=== PATIENT | female | born 1965 | race Caucasian/White ===

== ENCOUNTER 2020-08-11 16:01 | Emergency (ER) | payer SELFPAY ==
[~2020-08-11] VITALS: Ht 157.5 cm; Wt 99.8 kg
[~2020-08-11 16:01] MED LIST: CIPRO 500MG TA500 MG PO; LORTAB 5/500 501 TAB PO
[2020-08-11 17:25] LABS: EOS % 0.2 % (1.0-5.0); HEMATOCRIT 48.8 % (37.0-47.0); LYMPH# 2.2 (1.50-4.00); MEAN CELL VOLUME 85 fl (78-100); MEAN CORPUSCULAR HEMOGLOBIN 28 pg (27-31); MEAN CORPUSCULAR HGB CONC 33 g/dL (33-37); MEAN PLATELET VOLUME 10.3 fl (7.4-10.4); MONO # 1.3 (0.20-0.80); PLATELET COUNT 441 K/mm3 (130-400); RED BLOOD COUNT 5.72 M/mm3 (4.10-5.30); RED CELL DISTRIBUTION WIDTH 13.4 % (11.5-14.5); WHITE BLOOD COUNT 13.3 K/mm3 (4.8-10.8)
[2020-08-11 17:28] LABS: NEU # 9.7 (1.40-6.50)
[2020-08-11 17:36] LABS: ALBUMIN 4.4 g/dL (3.5-5.0); SODIUM 143 mmol/L (136-145)
[2020-08-11 17:37] LABS: CALCIUM 10.1 mg/dL (8.3-10.5)
[2020-08-11 17:38] LABS: GLUCOSE 157 mg/dL (65-105)
[2020-08-11 17:39] LABS: TOTAL PROTEIN 7.8 g/dL (6.4-8.3)
[2020-08-11 17:40] LABS: CARBON DIOXIDE 25 mmol/L (22-29); POTASSIUM 2.8 mmol/L (3.5-5.1); TOTAL BILIRUBIN 0.9 mg/dL (0.2-1.2)
[2020-08-11 17:44] LABS: AST-SGOT 17 U/L (5-34)
[2020-08-11 17:45] LABS: ALT/SGPT 22 U/L (0-55)
[2020-08-11 17:52] LABS: TROPONIN-I < 0.03 ng/mL (<0.030)
[2020-08-11 19:15] VITALS: BP 171/113
== END 2020-08-11 19:26 | disposition short-term general hospital (02) ==
LOC: ED 16:01
PROVIDERS: Nurse Practitioner Family
DX: I63.9 Cerebral infarction, unspecified (principal); I61.5 Nontraumatic intracerebral hemorrhage, intraventricular; E87.6 Hypokalemia; Z20.828 Contact with and (suspected) exposure to other viral communicable diseases; Z90.89 Acquired absence of other organs; Z90.49 Acquired absence of other specified parts of digestive tract; Z86.73 Personal history of transient ischemic attack (TIA), and cerebral infarction without residual deficits; Z88.0 Allergy status to penicillin; Z88.2 Allergy status to sulfonamides; Z88.5 Allergy status to narcotic agent; Z88.8 Allergy status to other drugs, medicaments and biological substances
CPT/HCPCS: J3480; J7050

== ENCOUNTER → 2020-09-10 | Outpatient (CLI) | payer SELFPAY ==
[2020-08-11 19:15] VITALS: BP 171/113
== END ==
LOC: RAD 10:29
DX: I63.9 Cerebral infarction, unspecified (principal); G93.89 Other specified disorders of brain

== ENCOUNTER 2020-09-24 13:38 | Emergency (ER) | payer OTHER ==
[2020-09-24] MEDS ORDERED: ATORVASTATIN CA80 MG PO (14:09)
[2020-09-24] MEDS ORDERED: NORVASC 10MG10 MG PO (14:09)
[2020-09-24] MEDS ORDERED: ASPIRIN 81M81 MG/TA2 PO (14:10)
[2020-09-24] MEDS ORDERED: CLONIDINE1 EAC1 TD (14:10)
[2020-09-24] MEDS ORDERED: DOXAZOSIN MESYLA1 M1 PO (14:10)
[2020-09-24 14:14] LABS: EOS # 0.1 (0.04-0.40); EOS % 0.8 % (1.0-5.0); HEMATOCRIT 41.6 % (37.0-47.0); HEMOGLOBIN 13.6 g/dL (12.5-16.0); LYMPH# 2.2 (1.50-4.00); MEAN CELL VOLUME 87 fl (78-100); MEAN CORPUSCULAR HEMOGLOBIN 29 pg (27-31); MEAN CORPUSCULAR HGB CONC 33 g/dL (33-37); MEAN PLATELET VOLUME 10.2 fl (7.4-10.4); MONO # 0.7 (0.20-0.80); PLATELET COUNT 320 K/mm3 (130-400); RED BLOOD COUNT 4.76 M/mm3 (4.10-5.30); RED CELL DISTRIBUTION WIDTH 13.5 % (11.5-14.5)
[2020-09-24 14:23] LABS: POTASSIUM 3.2 mmol/L (3.5-5.1); SODIUM 144 mmol/L (136-145)
[2020-09-24 14:24] LABS: CALCIUM 9.7 mg/dL (8.3-10.5)
[2020-09-24 14:25] LABS: GLUCOSE 120 mg/dL (65-105)
[2020-09-24 14:27] LABS: CARBON DIOXIDE 25 mmol/L (22-29); TOTAL BILIRUBIN 0.8 mg/dL (0.2-1.2)
[2020-09-24 14:31] LABS: AST-SGOT 17 U/L (5-34)
[2020-09-24 14:32] LABS: ALT/SGPT 21 U/L (0-55)
[2020-09-24 14:38] LABS: TROPONIN-I < 0.03 ng/mL (<0.030)
[2020-09-24] MEDS ORDERED: CATAPRES0.1 M1 PO ×3 (16:23→17:08)
[2020-09-24] MEDS ORDERED: POTASSIUM CHLO20 ME3 PO ×3 (16:25→17:08)
[2020-09-24 16:49] VITALS: BP 153/85
== END 2020-09-24 16:33 | disposition home or self-care (01) ==
LOC: ED 13:38
PROVIDERS: Nurse Practitioner Family
DX: I10 Essential (primary) hypertension (principal); E87.6 Hypokalemia; Z86.73 Personal history of transient ischemic attack (TIA), and cerebral infarction without residual deficits; E78.5 Hyperlipidemia, unspecified; Z90.49 Acquired absence of other specified parts of digestive tract; Z88.0 Allergy status to penicillin; Z88.2 Allergy status to sulfonamides; Z88.5 Allergy status to narcotic agent; Z88.8 Allergy status to other drugs, medicaments and biological substances; Z79.82 Long term (current) use of aspirin; Z79.899 Other long term (current) drug therapy

== ENCOUNTER → 2020-11-16 | Outpatient (CLI) | payer MEDICAID ==
[~2020-11-16] MED LIST changes: +ASPIRIN 81M81 MG/TA2 PO; +ATORVASTATIN CA80 MG PO; +CATAPRES0.1 M1 PO; +CLONIDINE1 EAC1 TD; +DOXAZOSIN MESYLA1 M1 PO; +NORVASC 10MG10 MG PO; +POTASSIUM CHLO20 ME3 PO
[2020-11-16 11:45] LABS: EOS # 0.1 (0.04-0.40); EOS % 0.9 % (1.0-5.0); HEMATOCRIT 43.3 % (37.0-47.0); HEMOGLOBIN 13.6 g/dL (12.5-16.0); LYMPH# 1.5 (1.50-4.00); MEAN CELL VOLUME 91 fl (78-100); MEAN CORPUSCULAR HEMOGLOBIN 29 pg (27-31); MEAN CORPUSCULAR HGB CONC 31 g/dL (33-37); MEAN PLATELET VOLUME 9.7 fl (7.4-10.4); MONO # 0.5 (0.20-0.80); NEU # 4.7 (1.40-6.50); PLATELET COUNT 377 K/mm3 (130-400); RED BLOOD COUNT 4.74 M/mm3 (4.10-5.30); WHITE BLOOD COUNT 6.8 K/mm3 (4.8-10.8)
[2020-11-16 12:03] LABS: ALBUMIN 4.3 g/dL (3.5-5.0); POTASSIUM 4.5 mmol/L (3.5-5.1)
[2020-11-16 12:05] LABS: CALCIUM 9.9 mg/dL (8.3-10.5)
[2020-11-16 12:06] LABS: TOTAL PROTEIN 7.6 g/dL (6.4-8.3)
[2020-11-16 12:08] LABS: TOTAL BILIRUBIN 0.7 mg/dL (0.2-1.2)
== END ==
LOC: LAB 11:24
PROVIDERS: Family Medicine
DX: Z00.00 Encounter for general adult medical examination without abnormal findings (principal); E55.9 Vitamin D deficiency, unspecified

== ENCOUNTER 2020-11-30 09:15 | Outpatient (RCR) | payer MEDICAID, OTHER | END 2020-12-03 | disposition home or self-care (01) | LOC: SPEECH | DX: I61.8 Other nontraumatic intracerebral hemorrhage (principal) ==

== ENCOUNTER 2020-12-07 09:30 | Outpatient (RCR) | payer MEDICAID, OTHER | END 2021-03-07 | disposition home or self-care (01) | LOC: SPEECH | DX: I63.9 Cerebral infarction, unspecified (principal) ==

== ENCOUNTER 2020-12-14 10:00 | Outpatient (RCR) | payer MEDICAID | END 2021-02-04 17:00 | disposition home or self-care (01) | LOC: PT 10:00 | DX: M75.01 Adhesive capsulitis of right shoulder (principal) ==

== ENCOUNTER → 2022-01-04 | Outpatient (CLI) | payer MEDICAID ==
[2022-01-04 09:26] LABS: BASO # 0.05 K/mm3 (0.02-0.10); EOS # 0.09 K/mm3 (0.04-0.40); EOS % 1.2 % (1.0-5.0); HEMATOCRIT 41.9 % (37.0-47.0); HEMOGLOBIN 13.7 g/dL (12.5-16.0); LYMPH# 1.66 K/mm3 (1.50-4.00); MEAN CELL VOLUME 90 fl (78-100); MEAN CORPUSCULAR HEMOGLOBIN 29 pg (27-31); MEAN CORPUSCULAR HGB CONC 33 g/dL (33-37); MEAN PLATELET VOLUME 10.8 fl (7.4-10.4); MONO # 0.71 K/mm3 (0.20-0.80); NEU # 4.98 K/mm3 (1.40-6.50); PLATELET COUNT 278 K/mm3 (130-400); RED BLOOD COUNT 4.67 M/mm3 (4.10-5.30); WHITE BLOOD COUNT 7.5 K/mm3 (4.8-10.8)
[2022-01-04 09:28] LABS: ALBUMIN 3.8 g/dL (3.5-5.0); POTASSIUM 3.7 mmol/L (3.5-5.1)
[2022-01-04 09:29] LABS: CALCIUM 9.7 mg/dL (8.3-10.5)
[2022-01-04 09:30] LABS: TOTAL PROTEIN 7.2 g/dL (6.4-8.3)
[2022-01-04 09:32] LABS: TOTAL BILIRUBIN 0.9 mg/dL (0.2-1.2)
== END ==
LOC: LAB 08:46
PROVIDERS: Family Medicine
DX: Z00.00 Encounter for general adult medical examination without abnormal findings (principal); Z12.11 Encounter for screening for malignant neoplasm of colon; Z12.31 Encounter for screening mammogram for malignant neoplasm of breast; E78.5 Hyperlipidemia, unspecified; F19.11 Other psychoactive substance abuse, in remission; N39.41 Urge incontinence; E55.9 Vitamin D deficiency, unspecified; E66.9 Obesity, unspecified

== ENCOUNTER → 2022-01-05 | Outpatient (CLI) | payer MEDICAID | LOC: LAB 14:04 | DX: Z12.11 Encounter for screening for malignant neoplasm of colon (principal) ==

== ENCOUNTER → 2022-05-04 | Outpatient (CLI) | payer MEDICAID ==
[2022-05-04 12:38] LABS: BASO # 0.05 K/mm3 (0.02-0.10); EOS # 0.05 K/mm3 (0.04-0.40); EOS % 0.5 % (1.0-5.0); HEMATOCRIT 45.6 % (37.0-47.0); HEMOGLOBIN 14.6 g/dL (12.5-16.0); LYMPH# 2.02 K/mm3 (1.50-4.00); MEAN CELL VOLUME 93 fl (78-100); MEAN CORPUSCULAR HEMOGLOBIN 30 pg (27-31); MEAN CORPUSCULAR HGB CONC 32 g/dL (33-37); MEAN PLATELET VOLUME 10.7 fl (7.4-10.4); MONO # 0.76 K/mm3 (0.20-0.80); NEU # 6.95 K/mm3 (1.40-6.50); PLATELET COUNT 270 K/mm3 (130-400); RED BLOOD COUNT 4.92 M/mm3 (4.10-5.30); RED CELL DISTRIBUTION WIDTH 12.7 % (11.5-14.5); WHITE BLOOD COUNT 9.9 K/mm3 (4.8-10.8)
[2022-05-04 12:42] LABS: ALBUMIN 3.9 g/dL (3.5-5.0); POTASSIUM 4.1 mmol/L (3.5-5.1)
[2022-05-04 12:44] LABS: TOTAL PROTEIN 7.7 g/dL (6.4-8.3)
[2022-05-04 12:46] LABS: TOTAL BILIRUBIN 0.8 mg/dL (0.2-1.2)
== END ==
LOC: LAB 11:41
PROVIDERS: Family Medicine
DX: I10 Essential (primary) hypertension (principal); E78.5 Hyperlipidemia, unspecified; E66.9 Obesity, unspecified; E55.9 Vitamin D deficiency, unspecified; N39.41 Urge incontinence; F19.90 Other psychoactive substance use, unspecified, uncomplicated; M25.562 Pain in left knee; M25.511 Pain in right shoulder

== ENCOUNTER 2023-04-20 13:55 | Emergency (ER) | payer MEDICARE, MEDICAID ==
[~2023-04-20] VITALS: Ht 160 cm; Wt 105.5 kg
[2023-04-20] MEDS ORDERED: TYLENOL EXTRA500 M2 PO (14:12)
[2023-04-20] MEDS ORDERED: LOSARTAN POTASS25 MG PO (14:15)
[2023-04-20] MEDS ORDERED: DITROPAN 5MG TAB5 MG PO (14:15)
[2023-04-20] MEDS ORDERED: KETOROLAC10 MG PO (15:45)
[2023-04-20 16:47] VITALS: BP 137/86
== END 2023-04-20 16:49 | disposition home or self-care (01) ==
LOC: ED 13:55
DX: S52.501A Unspecified fracture of the lower end of right radius, initial encounter for closed fracture (principal); Z28.310 Unvaccinated for COVID-19; Z88.6 Allergy status to analgesic agent; W18.09XA Striking against other object with subsequent fall, initial encounter; Y92.009 Unspecified place in unspecified non-institutional (private) residence as the place of occurrence of the external cause
CPT/HCPCS: J1885

== ENCOUNTER → 2023-05-24 | Outpatient (CLI) | payer MEDICARE, MEDICAID ==
[~2023-05-24] MED LIST changes: +DITROPAN 5MG TAB5 MG PO; +KETOROLAC10 MG PO; +LOSARTAN POTASS25 MG PO; +TYLENOL EXTRA500 M2 PO
== END ==
LOC: RAD 05-10 07:00
DX: M17.12 Unilateral primary osteoarthritis, left knee (principal)

== ENCOUNTER → 2023-10-30 | Outpatient (CLI) | payer MEDICARE, MEDICAID ==
[2023-10-30 16:33] LABS: BASO # 0.05 K/mm3 (0.02-0.10); EOS # 0.09 K/mm3 (0.04-0.40); EOS % 1.4 % (1.0-5.0); HEMATOCRIT 44.1 % (37.0-47.0); HEMOGLOBIN 14.2 g/dL (12.5-16.0); LYMPH# 2.16 K/mm3 (1.50-4.00); MEAN CELL VOLUME 93 fl (78-100); MEAN CORPUSCULAR HEMOGLOBIN 30 pg (27-31); MEAN CORPUSCULAR HGB CONC 32 g/dL (33-37); MEAN PLATELET VOLUME 9.4 fl (7.4-10.4); MONO # 0.65 K/mm3 (0.20-0.80); NEU # 3.56 K/mm3 (1.40-6.50); PLATELET COUNT 359 K/mm3 (130-400); RED BLOOD COUNT 4.77 M/mm3 (4.10-5.30); RED CELL DISTRIBUTION WIDTH 12.7 % (11.5-14.5); WHITE BLOOD COUNT 6.5 K/mm3 (4.8-10.8)
[2023-10-30 16:37] LABS: ALBUMIN 4.2 g/dL (3.5-5.0)
[2023-10-30 16:38] LABS: CALCIUM 10.2 mg/dL (8.3-10.5)
[2023-10-30 16:40] LABS: TOTAL PROTEIN 7.6 g/dL (6.4-8.3)
[2023-10-30 16:41] LABS: TOTAL BILIRUBIN 0.7 mg/dL (0.2-1.2)
== END ==
LOC: LAB 16:10
PROVIDERS: Family Medicine
DX: E78.5 Hyperlipidemia, unspecified (principal); I10 Essential (primary) hypertension; E55.9 Vitamin D deficiency, unspecified